=== PATIENT | female | born 1975 | race Caucasian/White ===

== ENCOUNTER 2024-12-25 18:25 | Emergency (ER) | payer SELFPAY ==
[~2024-12-25] VITALS: Wt 62.6 kg
[2024-12-25] MEDS ORDERED: SODIUM CHLORIDE 0.9% 1,000 ML IV ONE (19:35)
[2024-12-25 20:01] LABS: MEAN CELL VOLUME 91.9 fl (81.0-99.0); MEAN CORPUSCULAR HGB 28.4 pg (27.0-31.0); MEAN PLATELET VOLUME 11.5 fl (9.6-12.3); NUCLEATED RED BLOOD CELL 0.0 10*3/uL (0.0-0.0); NUCLEATED RED BLOOD CELL 0.1 % (0.0-0.0); PLATELET COUNT AUTOMATED 226 10*3/uL (130-400); RED CELL DISTRI WIDTH 17.2 % (0-14.5)
[2024-12-25 20:02] LABS: MANUAL DIFF REFLEX YES
[2024-12-25 20:21] LABS: PLATELET SUFFICIENCY NORMAL (NORMAL); STOMATOCYTE FEW
[2024-12-25 20:33] LABS: BUN 13 mg/dl (9-23); SGPT/ALT 35 U/L (5-49)
[2024-12-25 20:45] LABS: BILIRUBIN Negative (Negative); BLOOD Negative (Negative); CLARITY Clear (Clear); COLOR Dark Yellow (Yellow); KETONE Trace (Negative); NITRITE Positive (Negative); PH 6.0 (4.5-8.0); SPECIFIC GRAVITY >= 1.030 (1.001-1.030); UROBILINOGEN 1.0 E.U./dl (0.0-1.0)
[2024-12-25 20:53] LABS: BACTERIA 3+; LEUKO ESTERASE Trace (Negative); RBC 0-2 rbc/hpf (0-2)
[2024-12-25] MEDS ORDERED: SODIUM CHLORIDE 0.9% 1,000 ML IV SCH (20:55)
[2024-12-25] MEDS ORDERED: IOHEXOL 300 MG/ML 100 ML VIAL IV ONE (20:55)
[2024-12-25] MEDS ORDERED: INSULIN LISPRO 1 UNIT/0.01 ML SQ ONE (21:05)
== END 2024-12-26 02:26 | disposition short-term general hospital (02) ==
LOC: ED 18:25
PROVIDERS: Emergency Medicine
DX: A41.9 Sepsis, unspecified organism (principal); E80.7 Disorder of bilirubin metabolism, unspecified; R74.01 Elevation of levels of liver transaminase levels; E16.2 Hypoglycemia, unspecified; E87.1 Hypo-osmolality and hyponatremia; D72.829 Elevated white blood cell count, unspecified